=== PATIENT | male | born 2000 | race Caucasian/White ===

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

== ENCOUNTER 2021-02-07 10:51 | Emergency (ER) | payer MEDICAID ==
[~2021-02-07] VITALS: Ht 177.8 cm; Wt 128.2 kg
[~2021-02-07 10:51] MED LIST changes: +TAMIFLU 75MG75 MG PO
[2021-02-07 11:30] VITALS: TEMP 100
[2021-02-07 12:50] VITALS: BP 140/72; PULSE 100
== END 2021-02-07 12:53 | disposition home or self-care (01) ==
LOC: COL.ER 10:51
DX: H61.23 Impacted cerumen, bilateral (principal); J06.9 Acute upper respiratory infection, unspecified; F84.0 Autistic disorder

== ENCOUNTER 2021-11-19 15:24 | Emergency (ER) | payer MEDICAID ==
[~2021-11-19] VITALS: Ht 172.7 cm; Wt 132.0 kg
[2021-11-19 16:45] VITALS: TEMP 99
[2021-11-19 19:25] VITALS: BP 131/98; PULSE 97
== END 2021-11-19 19:29 | disposition home or self-care (01) ==
LOC: COL.ER 15:24
DX: B34.9 Viral infection, unspecified (principal); Z20.822 Contact with and (suspected) exposure to COVID-19